=== PATIENT | male | born 1985 | race Hispanic/Latino ===

== ENCOUNTER 2021-03-30 13:05 | Emergency (ER) | payer SELFPAY ==
--- NOTE | 2021-03-30 14:16 | Emergency Department Report ---
Upper Extremity - HPI Chief Complaint: Extremity Injury, Upper Stated Complaint: DENTAL ISSUES Time Seen by Provider: 03/30/21 14:03 Upper Extremity: Left Thumb Occurred When: 1 Day Mechanism: Hit with Object Severity: moderate, severe Symptoms: Yes Pain with Movement, Yes Limited Range of Movement, Yes Swelling, Yes Bruising/Ecchymosis Other History: 35-year-old male who is right-hand dominant presents to the ER today with complaints of injury to his left thumb. Patient states that he was playing football with his nephew when his thumb accidentally struck his nephew's elbow. Since then he has been having significant pain, and swelling and some mild bruising around the IP joint and the distal aspect of the left thumb. He states that he is having difficulty moving the thumb due to pain. He has not taken anything for the pain since it started. He reports no additional symptoms at this time. ED Review of Systems ROS: Stated complaint: DENTAL ISSUES Other details as noted in HPI Comment: All other systems reviewed and negative Musculoskeletal: joint swelling, arthralgia Skin: other (bruising to thumb) ED Past Medical Hx - Medications Home Medications: Home Medications Medication Instructions Recorded Confirmed Last Taken Type Ketorolac [Toradol] 10 mg PO Q6H PRN #20 tablet 03/30/21 Unknown Rx Upper Extremity Exam - Exam General: Vital signs noted. No distress. Alert and acting appropriately. Hand: Yes Digit Tenderness (Severe ttp around IP joint, and the distal aspect of the left thumb; there is slight bruising, and mild to moderate swelling noted to the distal aspect of the thumb mainly on the palmar surface.), No Normal ROM in Digit(s) (Flexion at the level of the IP joint of the left thumb decreased due to pain and swelling.), No Digit(s) Deformity CMS Exam: Yes Normal Distal Pulses, Yes Normal Capillary Refill, Yes Normal Distal Sensation, No Broken Skin ED Course Vital Signs 03/30/21 14:03 Temperature 98.5 F Pulse Rate 74 Respiratory 18 Rate Blood Pressure 123/73 [Left] O2 Sat by Pulse 97 Oximetry ED Medical Decision Making - Radiology Data Radiology results: report reviewed Patient: MARIUM KIM MR#: [id number] 5 : 1985 Acct:[id number] Age/Sex: 35 / M ADM Date: 03/30/21 Loc: ED Attending Dr: Ordering Physician: VERONA DEVINE Date of Service: 03/30/21 Procedure(s): XR finger(s) 2+V LT Accession Number(s): [id number] cc: VERONA DEVINE Fluoro Time In Minutes: LEFT HAND 3 VIEW(S) INDICATION / CLINICAL INFORMATION: pain/injury/swelling COMPARISON: None available. FINDINGS: BONES / JOINT(S): No acute fracture or subluxation. No significant arthritis. SOFT TISSUES: No significant abnormality. ADDITIONAL FINDINGS: None. Signer Name: Mohit Matamoros MD Signed: 03/30/2021 2:55 PM Workstation Name: [id number] Transcribed By: SB Dictated By: MOHIT MATAMOROS MD Electronically Authenticated By: MOHIT MATAMOROS MD Signed Date/Time: 03/30/211454 DD/ 54 TD/TT: Critical care attestation.: If time is entered above; I have spent that time in minutes in the direct care of this critically ill patient, excluding procedure time. ED Disposition Clinical Impression: Thumb contusion, Thumb sprain Disposition: HOME / SELF CARE / HOMELESS Is pt being admited?: No Does the pt Need Aspirin: No Condition: Stable Instructions: Contusion, [id number], Finger Sprain, Adult, Finger Sprain (ED) Additional Instructions: I recommend that you wear the thumb spica splint for the next 3 to 4 days. Take the Toradol as prescribed to help with pain and swelling. Apply ice to the area. Limit use of the finger for the next week. I do recommend that you follow-up with compensation/benefits specialist in 1 to 2 weeks especially if the finger is still bothering you for further evaluation. Return to the ER if symptoms worsens in any way. Prescriptions: Ketorolac [Toradol] 10 mg PO Q6H PRN #20 tablet PRN Reason: Pain Referrals: PRIMARY CAREMD [Primary Care Provider] - 3-5 Days YANET KIM MD [Staff Physician] - 3-5 Days Forms: Work/School Release Form(ED) Time of Disposition: 15:20
[2021-03-30] MEDS ORDERED: IBUPROFEN 600 MG TAB PO ONE (14:17)
--- NOTE | 2021-03-30 14:59 | XRay Report ---
LEFT HAND 3 VIEW(S) INDICATION / CLINICAL INFORMATION: pain/injury/swelling COMPARISON: None available. FINDINGS: BONES / JOINT(S): No acute fracture or subluxation. No significant arthritis. SOFT TISSUES: No significant abnormality. ADDITIONAL FINDINGS: None. Signer Name: Mohit Matamoros MD Signed: 03/30/2021 2:55 PM Workstation Name: [email or web address]
[2021-03-30 15:39] VITALS: BP 145/80
== END 2021-03-30 15:49 | disposition home or self-care (01) ==
LOC: ED 13:05
DX: S63.602A Unspecified sprain of left thumb, initial encounter (principal); W22.8XXA Striking against or struck by other objects, initial encounter; Y93.89 Activity, other specified; Y92.89 Other specified places as the place of occurrence of the external cause; Y99.8 Other external cause status
CPT/HCPCS: 99283